=== PATIENT | male | born 1975 | race Caucasian/White ===

== ENCOUNTER 2022-05-14 08:57 | Outpatient (CLI) | payer OTHER, SELFPAY ==
--- NOTE | 2022-05-14 11:00 | NEURO_ITS ---
IMPRESSION: Complaints of right hand numbness/tingling. # Evidence of mild right carpal tunnel syndrome. # EMG examination was normal. Nerve Conduction Studies Anti Sensory Summary Table Stim Site NR Peak (ms) P-T Amp (?V) Site1 Site2 Delta-P (ms) Dist (cm) Landry (m/s) Right Median Anti Sensory (2-3nd Digit) Wrist 3.5 24.7 Wrist 2-3nd Digit 3.5 14.0 40 Wrist 3.6 24.6 Wrist 2-3nd Digit 3.5 14.0 40 Right Radial Anti Sensory (Base 1st Digit) Wrist 2.1 60.9 Wrist Base 1st Digit 2.1 0.0 Right Ulnar Anti Sensory (5th Digit) Wrist 3.1 36.2 Wrist 5th Digit 3.1 14.0 45 Motor Summary Table Stim Site NR Onset (ms) O-P Amp (mV) Site1 Site2 Delta-0 (ms) Dist (cm) Landry (m/s) Right Median Motor (Abd Poll Brev) Wrist 3.9 5.3 Elbow Wrist 3.9 24.0 62 Elbow 7.8 3.7 Right Ulnar Motor (Abd Dig Minimi) Wrist 2.0 7.1 A Elbow Wrist 5.7 31.0 54 A Elbow 7.7 4.1 B Elbow Wrist 4.3 24.0 56 B Elbow 6.3 3.8 F Wave Studies NR F-Lat (ms) L-R F-Lat (ms) Right Median (Mrkrs) (Abd Poll Brev) 26.72 Right Ulnar (Mrkrs) (Abd Dig Min) 28.83 EMG Side Muscle Nerve Root Ins Act Fibs Amp Dur Recrt Comment Right 1stDorInt Ulnar C8-T1 Nml Nml Nml Nml Nml Right Ext Indicis Radial (Post Int) C7-8 Nml Nml Nml Nml Nml Right Ext Digitorum Radial (Post Int) C7-8 Nml Nml Nml Nml Nml Right BrachioRad Radial C5-6 Nml Nml Nml Nml Nml Right PronatorTeres Median C6-7 Nml Nml Nml Nml Nml Right Abd Poll Brev Median C8-T1 Nml Nml Nml Nml Nml MTDD
== END 2022-05-14 08:58 | disposition home or self-care (01) ==
PROVIDERS: PCP Nurse Practitioner Adult Health; Visit Provider Nurse Practitioner Adult Health
DX: R20.2 Paresthesia of skin (principal)
CPT/HCPCS: 95886; 95909

== ENCOUNTER 2022-06-26 07:20 | Outpatient (CLI) | payer OTHER, SELFPAY ==
--- NOTE | 2022-07-16 20:56 | WPDHOMESLEEP ---
Sleep Study - Home Unattended Date of Study: 06/26/22 Ordering Provider: Vivian Springer, INS[employer] CONSULTANT Interpreting Provider: Berkley Alvares, DO Home Sleep Study Type: Watch PAT Height: 1.8 m Weight: 90.718 kg Body Mass Index: 27.8 Neck Circumference (inches): 16.75 [place]: 4 Reason for Sleep Study Insomnia Sleep History The patient is a 47-year-old male with anxiety, depression, insomnia, hyperhidrosis, eczema and tobacco use disorder that had a sleep study ordered for evaluation of insomnia. The patient occasionally awakens from sleep short of breath. He denies awakening at night with heartburn, belching or cough. He constantly snores loud enough that others complain. He occasionally wakes up gasping for air throughout the night. He occasionally has breathing problems at night observed by himself or others. He occasionally sweats excessively at night. He occasionally has heart palpitations or irregular heartbeats during the night. He denies falling asleep during the day and while driving. He rarely experiences loss of muscle tone when extremely emotional. He rarely has trouble at school or work due to sleepiness. He denies feeling unable to move while waking up or falling asleep. He frequently experiences vivid dreamlike scenes upon awakening or falling asleep. He denies feeling afraid of going to sleep. He occasionally has nightmares. He denies remembering his dreams. He constantly has thoughts racing through his mind. He constantly feels sad, depressed and anxious. He occasionally has muscular tension. He frequently notices parts of his body jerk. He frequently kicks during the night. He frequently has crawling and aching feelings in his legs as well as leg pain during the night. He occasionally grinds his teeth during sleep but never awakens of morning jaw pain. He is occasionally bothered by pain during the day but rarely awakened by pain during the night. He frequently wakes up feeling stiff in the morning. He frequently wakes up with sore or achy muscles. He frequently wakes up with pain in the neck, spine or other joints. He goes to bed at 8:30 p.m. on weekdays and at 11:00 p.m. on the weekends. It takes him 1 hour to fall asleep. He wakes up twice throughout the night to use the restroom and get a snack. It takes him 30 minutes to fall back asleep. He wakes up at midnight on weekdays and at 3:00 a.m. on the weekends. He does not stay in bed after waking up in the morning. He currently lives with his . He does not consume any caffeinated beverages within 2 hours of bedtime. He does not engage in physical exercise before bedtime. He will watch television before falling asleep. He will take naps in the afternoon or the evening and they are refreshing. He drinks 4 caffeinated beverages per day. He currently uses tobacco products. He denies alcohol use. He smokes 1 bowl of marijuana daily. Sleep Procedure The sleep study was completed using OctroPAT a technically adequate device with seven channels: peripheral arterial tone, actigraphy, body position, snore, respiratory movement, pulse oximetry, sleep staging, and heart rate. Prior to using the device, the patient received verbal and written instructions for its application and was provided with the help desk phone number for additional telephonic instruction with 24-hour availability of qualified personnel to answer questions. The study was scored using CMS guidelines. Sleep Architecture The patient had a total recording time of 6 hours 34 minutes and total sleep time of 4 hours 57 minutes. The sleep efficiency was 75.31%. The sleep latency was 20 minutes and REM latency was 102 minutes. The patient had 14 awakenings. The patient spent 61.15% of total sleep time in light sleep, 18% of total sleep time in deep sleep and 20.85% of total sleep time in REM sleep. The patient spent 88 minutes, 29.6% of total sleep time in the supine position. Respiratory Analysis
[2022-07-16 21:05] VITALS: BMI 27.8
--- NOTE | 2023-03-24 11:22 | SLEEP ---
pt sched for titration [id number]
== END 2022-06-29 09:59 | disposition home or self-care (01) ==
PROVIDERS: PCP Nurse Practitioner Adult Health; Visit Provider Nurse Practitioner Adult Health
DX: G47.9 Sleep disorder, unspecified (principal)
CPT/HCPCS: 95800

== ENCOUNTER 2023-02-26 14:34 | Outpatient (CLI) | payer OTHER, SELFPAY | END 2023-02-26 14:35 | disposition home or self-care (01) | PROVIDERS: PCP Family Medicine; Visit Provider Family Medicine | DX: D64.9 Anemia, unspecified (principal) | CPT/HCPCS: 36415; 82728 ==

== ENCOUNTER 2023-03-30 10:06 | Outpatient (CLI) | payer OTHER, SELFPAY ==
--- NOTE | 2023-04-22 13:39 | WPDSLEEPSTUD ---
Sleep Study Date of Study: 03/30/23 Ordering Provider: Berkley Alvares DO Interpreting Physician: Viivan Lemons MD Sleep Study Type: Polysomnogram Height: 1.8 m Weight: 96.615 kg Body Mass Index: 29.7 Neck Circumference (inches): 17.5 [place]: 4 Reason for Sleep Study * 06/26/2022, WatchPat AHI 4.5, desaturation 87%, elevated RDI 11.9 He presents for in-lab study due to the discrepancy between the AHI and the RDI with suspicion that he still has significant sleep disordered breathing Sleep History Slick Chris is a 47-year-old man with anxiety, depression, insomnia, hyperhidrosis, eczema and tobacco use who had a home sleep test 07/07/2023 for insomnia. The patient occasionally awakens from sleep short of breath. He denies awakening at night with heartburn, belching or coughing. He constantly snores loudly enough that others complain. He occasionally wakes up gasping for air during the night. He occasionally has breathing problems at night observed by others. He occasionally sweats excessively at night. He occasionally has heart palpitations or irregular heartbeats during the night. He denies falling asleep during the day or while driving. He rarely experiences loss of muscle tone with strong emotion. He rarely has trouble in the day due to excessive sleepiness. He denies feeling unable to move while waking up or falling asleep. He frequently experiences vivid dreamlike scenes upon awakening or falling asleep. He is not afraid to go to sleep. He occasionally has nightmares. He denies remembering his dreams. He constantly has thoughts racing through his mind. He constantly feels sad, depressed, and anxious. He occasionally has muscular tension. He frequently notices parts of his body jerk. He frequently kicks during the night. He frequently has crawling and aching feelings in his legs as well as leg pain during the night. He occasionally grinds his teeth during sleep but never awakens with morning jaw pain. He is occasionally bothered by pain during the day but rarely awakened by pain during the night. He frequently wakes up feeling stiff in the morning. He frequently wakes up with sore or achy muscles. He frequently wakes up with pain in the neck, spine or other joints. He goes to bed at 8:30 p.m. on weekdays and at 11:00 p.m. on the weekends. It takes him 1 hour to fall asleep. He wakes up twice throughout the night to use the bathroom, often gets a snack. It takes him 30 minutes to return to sleep. He wakes up at midnight on weekdays and at 3:00 a.m. on the weekends. He does not stay in bed after waking up in the morning. Hetakes naps in the afternoon or the evening. A short nap is refreshing. He drinks 4 caffeinated beverages per day. He currently uses tobacco products. He denies alcohol use. He smokes 1 bowl of marijuana daily. [facility] Past Medical History Medical History (Updated 04/22/23 @ 13:57 by Vivian Lemons MD) Anxiety and depression Eczema Hyperhidrosis Insomnia Restless legs syndrome Social History Social History (Updated 03/01/23 @ 15:03 by Berkley Alvares DO) Smoking status: Never smoker Tobacco type: e-cigarettes/vaping and smokeless tobacco Smokeless tobacco user: chewing tobacco Alcohol intake: current Substance use type: marijuana Lack of Transportation: No Lack of Food: Never True Current Housing: I Have Housing Concerned About Future Housing: No Difficulty Paying Gas/Electric Bills: No Difficulty Paying for Meds: No Currently Unemployed: No Education: Associate Degree Medications Home Medications Medication Instructions Recorded Confirmed Type eszopiclone 3 mg tablet (Lunesta) 3 mg PO QHS #1 tablet 02/25/23 02/25/23 Rx ropinirole 1 mg tablet 1.5 mg PO QHS #135 tabs 03/24/23 Rx Sleep Procedure This test was performed using the [employer] SleepWorks multiple channel system including EOG, EEG, submental EMG, EKG, nasal and oral airf
[2023-04-22 13:42] VITALS: BMI 29.7
== END 2023-03-31 05:32 | disposition home or self-care (01) ==
LOC: ANHCSM 10:08
PROVIDERS: PCP Family Medicine; Visit Provider Family Medicine
DX: G47.9 Sleep disorder, unspecified (principal)
CPT/HCPCS: 95810

== ENCOUNTER 2024-02-08 08:08 | Emergency (ER) | payer OTHER, SELFPAY ==
[2024-02-08 08:17] VITALS: BP 126/75; PULSE 90; RESP 18; TEMP 37.3; O2SAT 98
--- NOTE | 2024-02-08 08:22 | ED.SKABFB ---
HPI - Skin/Abscess/Foreign Bdy General Chief complaint: Skin/Abscess/Foreign Body Stated complaint: rash Time Seen by Provider: 02/08/24 08:22 Source: patient, RN notes reviewed and old records reviewed Mode of arrival: ambulatory Limitations: no limitations History of Present Illness HPI narrative: 48-year-old male presents to the [facility] with complaints of a rash. Patient reports that the rash started about 4 days ago. Has been taking Benadryl with no relief. States he had something similar about 10 years ago and was given a shot. Patient denies any new creams ointments lotions detergents. No new foods. Patient denies any trouble swallowing, breathing. No lip or tongue swelling. Rashes to the thighs, abdomen, chest. Patient reports the side of his face is becoming itchy, no rash noted at this time Onset (ago): day(s) (4) Treatments prior to arrival: Benadryl Related Data Allergies Allergy/AdvReac Type Severity Reaction Status Date / Time No Known Allergies Allergy Verified 02/08/24 08:16 Review of Systems Review of Systems: All systems reviewed & are unremarkable except as noted in HPI and below Constitutional: Constitutional: Reports no additional constitutional complaints Eyes: Eyes: Reports no additional eye complaints ENT: Reports system reviewed and no additional complaints, except as documented Cardiovascular: Cardiovascular: Reports no additional cardiovascular complaints, Denies chest pain and Denies dyspnea Respiratory: Respiratory: Reports no additional respiratory complaints, Denies chest congestion, Denies cough and Denies dyspnea Integumentary/Breasts: Skin/Breast: Reports as per HPI and Reports rash Neurologic: Reports system reviewed and no additional complaints, except as documented Psychiatric: Psychiatric: Reports no additional psychiatric complaints Allergic/Immunologic: Allergic/Immunologic: Reports no additional allergic/immunologic complaints [facility] Past Medical History Medical History (Updated 02/08/24 @ 09:10 by Kathya Perez APRN) Anxiety and depression Eczema Hyperhidrosis Insomnia Restless legs syndrome Surgical History Surgical History (Updated 02/08/24 @ 09:10 by Kathya Perez APRN) H/O shoulder surgery Left, biceps, rotator cuff Social History Social History Smoking status: Never smoker Tobacco type: e-cigarettes/vaping and smokeless tobacco Smokeless tobacco user: chewing tobacco Alcohol intake: current Substance use type: marijuana Lack of Transportation: No Lack of Food: Never True Current Housing: I Have Housing Concerned About Future Housing: No Difficulty Paying Gas/Electric Bills: No Difficulty Paying for Meds: No Currently Unemployed: No Education: Associate Degree Comments At the time of my signature, I reviewed and agree with the nursing past medical, surgical, social, and family history. There is no relevant family history pertinent to the patient complaint. Exam Const: General: cooperative, healthy appearing, comfortable, no acute distress, well developed, alert and well nourished Nutritional Appearance: well nourished Orientation/consciousness: patient oriented x3 Limitations: no limitations HENMT: Head: normal to inspection Ears: hearing grossly normal bilaterally and external ears normal Face/Nose/Sinus: Normal external nose present, Normal nares present, Normal nasal mucous membranes and turbinates present, normal facial exam and face symmetric Face and sinus: normal facial exam and face symmetric Throat: posterior oropharynx normal, uvula midline and no uvular edema Eyes: General: appearance normal, both eyes and all related structures Alignment and Position: alignment normal Periorbital: periorbital findings normal Pupils: Equal, round and reactive pupils present EOM: EOMs intact bilaterally Neck: Neck: normal visual inspection, full ROM, no lymphadeno
== END 2024-02-08 08:39 | disposition home or self-care (01) ==
PROVIDERS: Emergency Provider Nurse Practitioner; PCP Family Medicine
DX: L50.9 Urticaria, unspecified (principal); G25.81 Restless legs syndrome
CPT/HCPCS: 99213; G0463

== ENCOUNTER 2024-02-16 16:53 | Emergency (ER) | payer OTHER, SELFPAY ==
[2024-02-16 17:00] VITALS: BP 126/82; PULSE 83; RESP 18; TEMP 36.4; O2SAT 100
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
[2024-02-16] MEDS: methylPREDNISolone SOD SUCC 125 MG VIAL IM (17:50)
== END 2024-02-16 18:05 | disposition home or self-care (01) ==
PROVIDERS: Emergency Provider Registered Nurse; PCP Family Medicine
DX: L50.9 Urticaria, unspecified (principal); F41.9 Anxiety disorder, unspecified; F17.290 Nicotine dependence, other tobacco product, uncomplicated; F17.220 Nicotine dependence, chewing tobacco, uncomplicated; F12.90 Cannabis use, unspecified, uncomplicated; G25.81 Restless legs syndrome
CPT/HCPCS: 96372; 99213; G0463; J2919